=== PATIENT | male | born 1965 | race Caucasian/White ===

== ENCOUNTER 2018-11-20 07:54 | Inpatient (IN) | payer OTHER ==
[~2018-11-20 07:54] MED LIST: cefOXitin 2 GM Vial ONE
[2018-11-20] MEDS ORDERED: Scopolamine 1.5 MG Transdermal Patch TOP SCH (08:00)
[2018-11-20] MEDS ORDERED: Celecoxib 200 MG Cap PO ONE (08:00)
[2018-11-20] MEDS ORDERED: Gabapentin 300 MG Cap PO ONE (08:00)
[2018-11-20] MEDS ORDERED: Acetaminophen 500 MG Tab PO ONE (08:00)
[2018-11-20] MEDS ORDERED: Dextrose 5%-Lactated Ringers 1,000 ML IV SCH ×2 (08:30→14:45)
[2018-11-20] MEDS ORDERED: Albuterol/Ipratropium 3.0-0.5 MG/3 ML Neb Soln NEB ONE (08:30)
[2018-11-20] MEDS ORDERED: cefOXitin 2 GM in Sodium Chloride 0.9% 50 ML IV ONE (09:15)
[2018-11-20] MEDS ORDERED: Ketamine 50 MG in Sodium Chloride 0.9% 49.5 ML IV SCH (10:00)
[2018-11-20] MEDS ORDERED: Ketamine 500 MG/5 ML MDV IV SCH (10:00)
[2018-11-20] MEDS ORDERED: Lidocaine 2% 100 MG/5 ML Syringe IVPUSH SCH (10:00)
[2018-11-20] MEDS ORDERED: Midazolam 1 MG/ML 2 ML SDV ONE (10:33)
[2018-11-20] MEDS ORDERED: fentaNYL 100 MCG/2 ML SDV ONE ×2 (10:33→11:59)
[2018-11-20] MEDS ORDERED: Ondansetron 4 MG/2 ML SDV ONE (10:48)
[2018-11-20] MEDS ORDERED: Propofol 200 MG/20 ML SDV ONE (10:48)
[2018-11-20] MEDS ORDERED: Phenylephrine 1% 10 MG/ML SDV ONE (10:55)
[2018-11-20] MEDS ORDERED: Dexamethasone 4 MG/ML SDV ONE ×2 (11:30)
[2018-11-20] MEDS ORDERED: ePHEDrine 50 MG/ML SDV ONE (12:16)
[2018-11-20] MEDS ORDERED: Rocuronium 50 MG/5 ML Vial ONE ×2 (12:19→12:42)
[2018-11-20] MEDS ORDERED: Succinylcholine 200 MG/10 ML MDV ONE (12:42)
[2018-11-20] MEDS ORDERED: hydrOXYzine HCl 100 MG/2 ML SDV IM ONE (12:47)
[2018-11-20] MEDS: Lidocaine 0.4%/D5W 2 GM/500 ML BAG IV SCH ×2 (14:17→14:19)
[2018-11-20] MEDS ORDERED: Ondansetron 4 MG/2 ML SDV IVPUSH PRN (14:40)
[2018-11-20] MEDS ORDERED: HYDROmorphone 1 MG/ML Syringe IV PRN (14:40)
[2018-11-20] MEDS ORDERED: diphenhydrAMINE 50 MG/ML SDV IVPUSH PRN (14:40)
[2018-11-20] MEDS ORDERED: Albuterol/Ipratropium 3.0-0.5 MG/3 ML Neb Soln INH PRN (14:40)
[2018-11-20] MEDS ORDERED: Labetalol 20 MG/4 ML Syringe IVPUSH PRN (14:40)
[2018-11-20] MEDS ORDERED: hydrOXYzine HCl 100 MG/2 ML SDV IM PRN (14:40)
[2018-11-20] MEDS ORDERED: Metoclopramide 10 MG/2 ML SDV IVPUSH PRN (14:40)
[2018-11-20] MEDS ORDERED: HYDROmorphone 0.5 MG/0.5 ML Syringe IVPUSH PRN (14:40)
[2018-11-20] MEDS ORDERED: Insulin Lispro 100 Unit/ML 3 ML KwikPen SUBCUT PRN (14:40)
[2018-11-20] MEDS: Lactated Ringers 1,000 ML IV SCH (14:45)
[2018-11-20] MEDS ORDERED: MVI, Adult with Vitamin K 10 ML, Thiamine 200 MG, Chromium/Copper/Mang/Selen/Zn 1 ML in... IV SCH ×4 (16:00)
[2018-11-20] MEDS ORDERED: Pantoprazole 40 MG Vial IVPUSH SCH (16:00)
[2018-11-20] MEDS: Albuterol/Ipratropium 3.0-0.5 MG/3 ML Neb Soln INH SCH ×2 (16:39→21:13)
[2018-11-20] MEDS: cefOXitin 2 GM in Sodium Chloride 0.9% 50 ML IV SCH ×2 (17:23→21:13)
[2018-11-20] MEDS: Acetaminophen 325 MG Tab PO SCH ×2 (17:24→21:28)
[2018-11-20] MEDS: Heparin Sodium 5,000 Units/ML Vial SUBCUT SCH (17:24)
[2018-11-20] MEDS: SCOPOLAMINE PATCH CHECK TOP SCH (17:25)
[2018-11-20] MEDS: Gabapentin 250 MG/5 ML Solution ML 470 ML Bottle PO SCH (21:13)
[2018-11-20] MEDS: Metoprolol Tartrate 50 MG, Metoprolol Tartrate 25 MG PO SCH ×2 (21:14)
[2018-11-21] MEDS: Lactated Ringers 1,000 ML IV SCH ×2 (01:00→13:53)
[2018-11-21] MEDS ORDERED: Iopamidol 612 MG/ML 100 ML Bottle STA (03:02)
[2018-11-21] MEDS: cefOXitin 2 GM in Sodium Chloride 0.9% 50 ML IV SCH ×3 (03:37→15:50)
[2018-11-21] MEDS: Acetaminophen 325 MG Tab PO SCH ×3 (03:37→16:42)
--- NOTE | 2018-11-21 04:32 | CRLCR ---
Indication: Anastomotic leak Technique: Two views of the abdomen following the administration of oral contrast Comparison: None available Findings/Impression : Apparent post gastrojejunostomy changes with left upper quadrant drain. Contrast opacifies the distal esophagus, gastric pouch and left abdominal jejunal segments. A small collection of contrast adjacent to the gastroesophageal junction on the 1st image could be related to the gastric pouch, not as well seen on the 2nd image. Consider correlation with delayed images for further evaluation. Dictated by Jose Peguero MD @ 11/21/2018 4:30:27 AM Dictated by: Jose Peguero MD @ 11/21/2018 04:30:33 (Electronically Signed)
[2018-11-21] MEDS: Heparin Sodium 5,000 Units/ML Vial SUBCUT SCH ×2 (06:06→17:47)
[2018-11-21] MEDS: Albuterol/Ipratropium 3.0-0.5 MG/3 ML Neb Soln INH SCH ×4 (07:03→20:55)
[2018-11-21] MEDS ORDERED: Ondansetron 4 MG Tab.DIS PO PRN (07:42)
[2018-11-21] MEDS ORDERED: Albuterol 8 GM Inhaler INH PRN (07:43)
[2018-11-21] MEDS ORDERED: Dextrose 5%-Lactated Ringers 1,000 ML IV SCH (07:45)
[2018-11-21] MEDS ORDERED: Tamsulosin 0.4 MG Cap.ER PO ONE (08:00)
[2018-11-21] MEDS: Metoprolol Tartrate 50 MG, Metoprolol Tartrate 25 MG PO SCH ×4 (08:11→20:56)
[2018-11-21] MEDS: Celecoxib 200 MG Cap PO SCH (08:11)
[2018-11-21] MEDS ORDERED: buPROPion 150 MG Tab.ER PO SCH (09:00)
[2018-11-21] MEDS ORDERED: Metoprolol Tartrate 50 MG Tab PO SCH (09:00)
[2018-11-21] MEDS: Spironolactone 25 MG Tab PO SCH (09:46)
[2018-11-21] MEDS: Levothyroxine 25 MCG Tab PO SCH (09:46)
[2018-11-21] MEDS: SCOPOLAMINE PATCH CHECK TOP SCH (09:46)
[2018-11-21] MEDS: Gabapentin 250 MG/5 ML Solution ML 470 ML Bottle PO SCH ×3 (09:51→20:55)
[2018-11-21] MEDS: Hydrochlorothiazide 12.5 MG Cap PO SCH ×2 (09:55→20:56)
[2018-11-21] MEDS: Losartan 50 MG Tab PO SCH ×2 (09:55→20:56)
[2018-11-21] MEDS: Lidocaine 0.4%/D5W 2 GM/500 ML BAG IV SCH (10:07)
--- NOTE | 2018-11-21 10:37 | PN ---
DATE OF SERVICE: 11/21/2018 SUBJECTIVE: Balwinder is postoperative day #1 following a Cruz-en-Y gastric bypass surgery. He has had no complications. Pain has been controlled. He is up ambulating. Vital signs have been stable. Oral intake was 830. Urine output was 1800. He was unable to void on his own, so Rey catheter had to be inserted. REVIEW OF SYSTEMS: Remainder of review of systems negative for any pertinent positives and negatives. OBJECTIVE: GENERAL: Balwinder Jeronimo is a 53-year-old male. VITAL SIGNS: Height is 6 feet 2 inches, weight is 378 pounds. TPR is 97.4, 79, 16, and blood pressure 141/68. HEENT: Negative. NECK: Supple. HEART: Regular rate and rhythm. LUNGS: Clear. ABDOMEN: Dressings dry and intact. Abdominal binder is on. FERN drain has put out 30 mL of a light pink drainage. There is some light pink drainage leakage around the FERN drain site itself. Rey catheter in place. EXTREMITIES: SCDs are on and no peripheral edema. ASSESSMENT: Laparoscopic Cruz-en-Y gastric bypass surgery, liver biopsy, small bowel resection, biopsy of peritoneal nodule on the small bowel, for morbid obesity, hepatomegaly, foreshortened small bowel mesenteric secondary to fatty infiltration and peritoneal nodule on surface of small bowel. Date of surgery 11/20/2018. Surgeon, Krish Mcelroy MD. PLAN: 1. Discontinue D5 LR. 2. Continue lactated Ringer IV at 100 mL per hour. Give Flomax 0.4 mg now. 3. Flomax 0.4 at bedtime. 4. Discontinue Rey catheter at 0400 hours on 11/22/2018. 5. Step-2 gastric bypass diet with no cereal. 6. Dressing off, may shower. 7. Restart home medications: Albuterol inhaler 2 puffs every 6 hours p.r.n., Wellbutrin changed to 75 mg b.i.d., levothyroxine 25 mcg mg p.o. daily, Cozaar 50 mg b.i.d., on DC metformin, metoprolol tartrate 75 mg b.i.d., hold Xarelto, and restart Aldactone 25 mg p.o. daily. 8. Good pulmonary toilet. 9. We will evaluate p.r.n. or in meeta Mc PA-C /[id number]
[2018-11-21] MEDS ORDERED: Pantoprazole 40 MG Delayed-Release Granules 1 Packet PO SCH (16:00)
[2018-11-21] MEDS ORDERED: MVI, Adult with Vitamin K 10 ML, Thiamine 200 MG, Chromium/Copper/Mang/Selen/Zn 1 ML in... IV SCH ×4 (16:00)
[2018-11-21] MEDS ORDERED: Tamsulosin 0.4 MG Cap.ER PO SCH (21:00)
[2018-11-22] MEDS: Acetaminophen 325 MG Tab PO SCH ×3 (00:20→11:02)
[2018-11-22] MEDS: Heparin Sodium 5,000 Units/ML Vial SUBCUT SCH (06:04)
[2018-11-22] MEDS: Albuterol/Ipratropium 3.0-0.5 MG/3 ML Neb Soln INH SCH ×2 (07:11→11:04)
[2018-11-22] MEDS: Levothyroxine 25 MCG Tab PO SCH (08:28)
[2018-11-22] MEDS: Hydrochlorothiazide 12.5 MG Cap PO SCH (08:28)
[2018-11-22] MEDS: Losartan 50 MG Tab PO SCH (08:28)
[2018-11-22] MEDS: Spironolactone 25 MG Tab PO SCH (08:29)
[2018-11-22] MEDS: Celecoxib 200 MG Cap PO SCH (08:29)
[2018-11-22] MEDS: Metoprolol Tartrate 50 MG, Metoprolol Tartrate 25 MG PO SCH ×2 (08:29)
[2018-11-22] MEDS: SCOPOLAMINE PATCH CHECK TOP SCH (08:30)
[2018-11-22] MEDS: Gabapentin 250 MG/5 ML Solution ML 470 ML Bottle PO SCH (08:39)
[2018-11-22] MEDS ORDERED: Cyanocobalamin (Vitamin B12) 1,000 MCG/ML SDV IM ONE (09:00)
--- NOTE | 2018-11-24 08:13 | OR ---
DATE OF PROCEDURE: 11/20/2018 SURGEON: Krish Mcelroy MD PREOPERATIVE DIAGNOSIS: Morbid obesity. POSTOPERATIVE DIAGNOSES: 1. Morbid obesity. 2. Marked hepatomegaly. 3. Foreshortened small bowel mesentery secondary to extensive fatty infiltration. 4. Peritoneal nodule overlying surface of small bowel. OPERATIVE PROCEDURE: Diagnostic laparoscopy with: 1. Laparoscopic Cruz-en-Y gastric bypass with long limb gastroenterostomy (80646). 2. Eagle-Cut needle liver biopsy (34175). 3. Small bowel resection (60282). 4. Biopsy of peritoneal nodule overlying small bowel (56018). ANESTHESIA: General. ASSISTANTS: 1. Abby Mc PA-C. 2. BAKARI Barron1. INDICATION FOR PROCEDURE: This is a 53-year-old male, presenting with longstanding morbid obesity and increasingly significant comorbidities. After preoperative evaluation and discussion, he wished to proceed with a gastric bypass procedure. Potential risks of the procedure including bleeding, infection, leaks from various GI tract closures, problems with bowel obstruction over time, as well as possibility of cardiopulmonary, septic, or hemorrhagic complications leading to were discussed, and the patient wishes to proceed. DETAILS OF PROCEDURE: The patient was taken to the operating room and placed in a supine position. After general endotracheal anesthesia was induced, he was converted to a lithotomy position and the abdomen prepped and draped. At 15 cm inferior and 5 cm left of xiphoid process, a transverse incision was made and the peritoneal cavity entered under direct vision with an Optiview trocar, inflated to 15 mmHg pressure with CO2. Laparoscope was reinserted. No underlying trocar insertion site injuries were seen. Following this, 5 additional trocars were placed across the upper and mid abdomen, and bilateral transversus abdominis plane blocks were placed. Initial exploration revealed markedly enlarged liver, which was grossly fatty infiltrated. Eagle-Cut needle biopsies were obtained from left lobe of liver. Minimal bleeding from the biopsy sites was controlled with electrocautery. The omentum was then divided in the midline up to the level of the transverse colon. Small bowel was then traced out 150 cm and was divided with a ALIRIO stapler. Small bowel mesentery was noted to be foreshortened due to extensive fatty infiltration, and this would likely result in a relatively immobile jejunojejunostomy. Given this, a portion of this was resected, roughly around 10 cm, with the bowel being divided with a ALIRIO stapler. Once again, the underlying mesentery was divided with Harmonic scalpel. Upon removal of the small bowel, this should allow the jejunojejunostomy to be quite a bit more mobile, allowing a relatively tension-free gastrojejunostomy. After the initial resection, small bowel was then traced out an additional 200 cm, where the [id number] enteroenterostomy was accomplished with internal firing of the Endo-ALIRIO 60 mm stapler. The common opening was then closed transversely with the same stapler, the angles anastomosed, and the mesenteric defect approximated with some 0 Ethibond sutures, reinforced with PTFE pledgets. Upon completion of the anastomosis, the mesentery to the distal Cruz limb was divided for a few centimeters, which allowed an antecolic position of the Cruz limb up to the level of the gastroesophageal junction without tension. One additional finding was that of a peritoneal nodule over the midportion of the Cruz limb. This was excised and sent for histologic evaluation. This was taken down somewhat piecemeal, and the aggregate size was less than 3 mm. The liver was then retracted anteriorly, and the patient was noted to have no significant diaphragmatic hernia. The gastrointestinal balloon catheter was inflated with 15 mL and pulled up snuggly against the EG junction. At the apex of the balloon, the stomach was marked with electrocautery. Balloon catheter was deflated and withdrawn. The lesser omental tissue was then divided adjacent to the gastric cardia. Following dissection behind the stomach, pouch formation was initiated with a ALIRIO black load due to quite thickened gastric tissue at that level. Remaining pouch was then completed with firings of the ALIRIO purple loads up to and through the angle of His. Upon completion of the pouch, both staple lines were noted to be intact. At this point, the anvil of a 25 mm EEA stapler was attached to [place] sump type tube. The latter was brought down through the mouth and taken out through a small opening in the gastric pouch, allowing the anvil likewise to be placed into the gastric pouch. The divided end of the Cruz limb was then opened and main body of the EEA stapler passed several centimeters into the lumen of the small bowel, brought up the anvil and united with it, thus creating the gastrojejunostomy. Upon removal of the stapler, double donuts of mucosa were noted within it. The small bowel was closed off with a vascular staple line. Gastrojejunostomy was then reinforced with some 3-0 Vicryl seromuscular stitch, along with fibrin sealant. Leak test was accomplished with injection of 120 mL of air into the gastric pouch while submerged with cefoxitin-containing saline solution. No leaks were identified. A single Unruly-Hoover drain was taken out through the left lateral trocar site, placed adjacent to the gastrojejunostomy and from there up into the area of the splenic fossa. With no further problems noted, trocars were removed and peritoneal cavity deflated. Incisions were closed with 4-0 Vicryl skin stitch, and dressing was then applied. The patient was taken to the recovery room in satisfactory condition. Physician assistant professor of chemistry, Abby cM, played an essential role in assisting in this case, helping to position the patient, retract structures as needed, as well as suturing and cutting sutures when indicated. Her presence improved patient safety and decreased operative time. Krish Mcelroy MD /[id number]
== END 2018-11-22 11:15 | disposition home or self-care (01) | DRG 621 ==
LOC: JP.SDS 07:54 → JP.SDSSCHI 07:54 → EDSTATUS 10:15 → JP.MS 13:25
PROVIDERS: ADMIT Surgery; ATTEND Surgery
PROC: 0D164ZA Bypass Stomach to Jejunum, Percutaneous Endoscopic Approach (ICD-10-PCS; principal; 2018-11-20)
PROC: 0FB24ZX Excision of Left Lobe Liver, Percutaneous Endoscopic Approach, Diagnostic (ICD-10-PCS; 2018-11-20)
PROC: 0DBW4ZZ Excision of Peritoneum, Percutaneous Endoscopic Approach (ICD-10-PCS; 2018-11-20)
PROC: 0DB84ZZ Excision of Small Intestine, Percutaneous Endoscopic Approach (ICD-10-PCS; 2018-11-20)
DX: E66.01 Morbid (severe) obesity due to excess calories (principal); Z68.42 Body mass index [BMI] 45.0-49.9, adult; R16.0 Hepatomegaly, not elsewhere classified; K66.8 Other specified disorders of peritoneum; E65 Localized adiposity; K76.0 Fatty (change of) liver, not elsewhere classified; N18.3 Chronic kidney disease, stage 3 (moderate); I12.9 Hypertensive chronic kidney disease with stage 1 through stage 4 chronic kidney disease, or unspecified chronic kidney disease; E11.22 Type 2 diabetes mellitus with diabetic chronic kidney disease; N18.1 Chronic kidney disease, stage 1; Z79.84 Long term (current) use of oral hypoglycemic drugs; Z87.891 Personal history of nicotine dependence; Z95.5 Presence of coronary angioplasty implant and graft; Z79.82 Long term (current) use of aspirin; Z91.030 Bee allergy status; Z88.8 Allergy status to other drugs, medicaments and biological substances
CPT/HCPCS: 36415; 51702; 74240; 82962; 86850; 86900; 86901; 94640; A9270-GY; C9113; J0171; J0330; J0694; J1100; J1644; J2001; J2250; J2370; J2405; J2704; J2795; J3010; J3410; J3411; J3420; J3490; J7042; J7050; J7120; J7620-GY; Q9967

== ENCOUNTER 2019-01-05 08:31 | Day surgery (SDC) | payer OTHER ==
[2019-01-05] MEDS ORDERED: Cyanocobalamin (Vitamin B12) 1,000 MCG/ML SDV IM ONE (09:45)
[2019-01-05] MEDS ORDERED: Lactated Ringers 1,000 ML IV SCH (09:45)
[2019-01-05] MEDS ORDERED: Glycopyrrolate 0.2 MG/ML 2 ML SDV IVPUSH ONE (10:00)
[2019-01-05] MEDS ORDERED: Midazolam 1 MG/ML 2 ML SDV ONE (10:01)
[2019-01-05] MEDS ORDERED: fentaNYL 100 MCG/2 ML SDV ONE (10:01)
[2019-01-05] MEDS ORDERED: Propofol 200 MG/20 ML SDV ONE (10:01)
[2019-01-05] MEDS ORDERED: MVI, Adult with Vitamin K 10 ML, Thiamine 200 MG, Chromium/Copper/Mang/Selen/Zn 1 ML in... IV ONE ×4 (10:45)
--- NOTE | 2019-01-10 11:14 | OR ---
DATE OF PROCEDURE: 01/05/2019 PREOPERATIVE DIAGNOSIS: Possible stricture gastrojejunostomy. POSTOPERATIVE DIAGNOSIS: Dysphagia associated with no significant stricture gastrojejunostomy. OPERATIVE PROCEDURE: Upper GI endoscopy with dilation of gastrojejunostomy (44078). ANESTHESIA: IV sedation. INDICATIONS FOR PROCEDURE: The patient is status post Cruz-en-Y gastric bypass in mid November, specifically on 11/20/2018, and presents with some episodes of dysphagia suggestive of possible stricture in his gastrojejunostomy. Plan is to proceed with upper GI endoscopy with dilation as indicated. Potential risks of bleeding and perforation were discussed, and the patient wishes to proceed. DETAILS OF PROCEDURE: The patient was taken to the operating room and placed in a left lateral decubitus position. IV sedation was administered, after which the upper GI endoscope was passed orally through the length of the esophagus and into the gastric pouch, and thereafter through the gastrojejunostomy roughly 20 cm into the Cruz limb. Findings included a very minimal if any narrowing of the gastrojejunostomy. A Bard gastrointestinal catheter was then inflated over the gastrojejunostomy at 36-Iraqi size, but that did not appear to create much in the way of any additional dilation. The dilator was then removed and the area was inspected. No problems were noted. Procedure was concluded. The patient was taken to the recovery room in satisfactory condition. The patient will be instructed to chew his food up somewhat more vigorously, and follow up will be with Abby Mc as arranged. Krish Mcelroy MD /[id number]
== END 2019-01-05 14:13 | disposition home or self-care (01) ==
LOC: JP.SDS 08:31
PROVIDERS: ATTEND Surgery
DX: R13.10 Dysphagia, unspecified (principal); F17.210 Nicotine dependence, cigarettes, uncomplicated; I10 Essential (primary) hypertension; I25.2 Old myocardial infarction; E78.5 Hyperlipidemia, unspecified; E11.9 Type 2 diabetes mellitus without complications; E66.9 Obesity, unspecified; M54.2 Cervicalgia; Z93.4 Other artificial openings of gastrointestinal tract status; Z98.84 Bariatric surgery status; Z88.8 Allergy status to other drugs, medicaments and biological substances; Z91.030 Bee allergy status; Z86.79 Personal history of other diseases of the circulatory system
CPT/HCPCS: 43245; J2250; J2704; J3010; J3411; J3420; J3490; J7120